=== PATIENT | female | born 1965 | race Caucasian/White ===

== ENCOUNTER → 2016-07-02 | Outpatient (CLI) | payer OTHER ==
[2016-07-02 18:15] LABS: BASO % 0.4 % (0.0-1.0); EOS # 0.1 K/mm3 (0.0-0.50); EOS % 1.8 % (0.0-3.0); LARGE UNSTAINED CELL # 0.1 K/mm3 (0.0-0.4); LARGE UNSTAINED CELL % 1.7 % (0.0-4.0); LYMPH # 2.7 K/mm3 (1.5-4.5); LYMPH % 37.3 % (24.0-44.0); MEAN CORPUSCULAR HEMOGLOBIN 28.9 pg (27.0-33.0); MEAN CORPUSCULAR HGB CONC 33.2 g/dl (32.0-36.5); MEAN CORPUSCULAR VOLUME 87.1 fl (80.0-96.0); MONO # 0.4 K/mm3 (0.0-0.8); MONO % 5.9 % (0.0-5.0); NEUTROPHILS # 3.6 K/mm3 (1.8-7.7); NEUTROPHILS % 52.9 % (36.0-66.0); PLATELET COUNT, AUTOMATED 290 k/mm3 (150-450); RED CELL DISTRIBUTION WIDTH 12.8 % (11.5-14.5); WHITE BLOOD COUNT 6.8 K/mm3 (4.0-10.0)
[2016-07-02 18:18] LABS: ALBUMIN 3.9 GM/DL (3.2-5.2); ALBUMIN/GLOBULIN RATIO 1.05 (1.00-1.93); ALKALINE PHOSPHATASE 66 U/L (45-117); ALT/SGPT 31 U/L (12-78); ANION GAP 7 MEQ/L (8-16); AST/SGOT 19 U/L (15-37); BLOOD UREA NITROGEN 13 MG/DL (7-18); CALCIUM LEVEL 9.4 MG/DL (8.5-10.1); CARBON DIOXIDE LEVEL 29 MEQ/L (21-32); CHLORIDE LEVEL 105 MEQ/L (98-107); CHOLESTEROL LEVEL 221 MG/DL (<200); CREATININE FOR GFR 0.69 MG/DL (0.55-1.02); FREE T4 1.14 NG/DL (0.76-1.46); GLOMERULAR FILTRATION RATE > 60.0 (>51); GLUCOSE, FASTING 89 MG/DL (70-105); POTASSIUM SERUM 4.7 MEQ/L (3.5-5.1); SODIUM LEVEL 141 MEQ/L (136-145); TOTAL PROTEIN 7.6 GM/DL (6.4-8.2); TRIGLYCERIDES LEVEL 102 MG/DL (<150)
== END ==
LOC: M LRY 10:50
PROVIDERS: ATTEND Physician Assistant Medical
DX: Z00.00 Encounter for general adult medical examination without abnormal findings (principal)

== ENCOUNTER → 2018-01-09 | Outpatient (CLI) | payer OTHER ==
[2018-01-09 16:44] LABS: BASO % 0.3 % (0.0-1.0); EOS # 0.1 10^3/uL (0.0-0.50); EOS % 1.7 % (0.0-3.0); HEMATOCRIT 42.6 % (36.0-47.0); HEMOGLOBIN 13.4 g/dl (12.0-15.5); IMMATURE GRANULOCYTE % 0.4 % (0-3.0); LYMPH # 2.8 10^3/uL (1.5-4.5); LYMPH % 40.7 % (24.0-44.0); MEAN CORPUSCULAR HEMOGLOBIN 27.5 pg (27.0-33.0); MEAN CORPUSCULAR HGB CONC 31.5 g/dl (32.0-36.5); MEAN CORPUSCULAR VOLUME 87.5 fl (80.0-96.0); MONO # 0.6 10^3/uL (0.0-0.8); MONO % 8.9 % (0.0-5.0); NEUTROPHILS # 3.3 10^3/uL (1.8-7.7); PLATELET COUNT, AUTOMATED 268 10^3/uL (150-450); RED BLOOD COUNT 4.87 10^6/uL (4.00-5.40); RED CELL DISTRIBUTION WIDTH 13.1 % (11.5-14.5); WHITE BLOOD COUNT 6.9 10^3/uL (4.0-10.0)
[2018-01-09 16:48] LABS: ANION GAP 5 MEQ/L (8-16); BLOOD UREA NITROGEN 16 MG/DL (7-18); CALCIUM LEVEL 8.7 MG/DL (8.5-10.1); CARBON DIOXIDE LEVEL 29 MEQ/L (21-32); CHLORIDE LEVEL 109 MEQ/L (98-107); CHOLESTEROL LEVEL 183 MG/DL (<200); CHOLESTEROL RISK RATIO 3.978 (<5); CREATININE FOR GFR 0.72 MG/DL (0.55-1.30); FREE T4 1.12 NG/DL (0.76-1.46); GLOMERULAR FILTRATION RATE > 60.0 (>51); GLUCOSE, FASTING 89 MG/DL (70-100); HDL CHOLESTEROL 46 MG/DL (>40); LDL CHOLESTEROL 121 MG/DL (<100); NON-HDL-C 137 MG/DL; POTASSIUM SERUM 4.5 MEQ/L (3.5-5.1); SODIUM LEVEL 143 MEQ/L (136-145); TRIGLYCERIDES LEVEL 80 MG/DL (<150)
== END ==
LOC: M LRY 12:06
DX: R19.7 Diarrhea, unspecified (principal)
CPT/HCPCS: 84443

== ENCOUNTER → 2018-01-13 | Outpatient (REF) | payer OTHER | LOC: M LAB REF 15:54 | DX: R19.7 Diarrhea, unspecified (principal); E78.5 Hyperlipidemia, unspecified | CPT/HCPCS: 87507 ==

== ENCOUNTER 2019-11-09 03:49 | Emergency (ER) | payer OTHER ==
[~2019-11-09] VITALS: Ht 170.2 cm; Wt 95.5 kg
[2019-11-09] MEDS ORDERED: CIPR500T3 PO (04:01)
[2019-11-09] MEDS ORDERED: CVS1CAP2 PO (04:03)
[2019-11-09 04:36] LABS: BASO % 0.3 % (0.0-1.0); EOS # 0.2 10^3/uL (0.0-0.5); EOS % 1.5 % (0.0-3.0); HEMATOCRIT 44.4 % (36.0-47.0); HEMOGLOBIN 14.4 g/dl (12.0-15.5); LYMPH # 3.9 10^3/uL (1.5-5.0); LYMPH % 35.7 % (24.0-44.0); MEAN CORPUSCULAR HEMOGLOBIN 27.7 pg (27.0-33.0); MEAN CORPUSCULAR HGB CONC 32.4 g/dl (32.0-36.5); MEAN CORPUSCULAR VOLUME 85.4 fl (80.0-96.0); MONO % 9.1 % (0.0-5.0); NEUTROPHILS # 5.8 10^3/uL (1.5-8.5); NEUTROPHILS % 53.1 % (36.0-66.0); PLATELET COUNT, AUTOMATED 301 10^3/uL (150-450); WHITE BLOOD COUNT 10.9 10^3/uL (4.0-10.0)
[2019-11-09] MEDS ORDERED: ONDANSETRON 4MG/2ML VIAL IV ONE (04:45)
[2019-11-09] MEDS ORDERED: MORPHINE 10 MG/ML 1ML VIAL (J2270) IV ONE (04:45)
[2019-11-09] MEDS ORDERED: LR 1,000 ML IV ONE (04:45)
[2019-11-09 04:53] LABS: INR 0.88; PROTHROMBIN TIME 12.1 SECONDS (12.5-14.3)
[2019-11-09] MEDS ORDERED: NS 1,000 ML IV ONE (05:00)
[2019-11-09 05:21] LABS: ALBUMIN 3.9 GM/DL (3.2-5.2); ALT/SGPT 26 U/L (12-78); BILIRUBIN,DIRECT 0.2 MG/DL (0.0-0.2); BILIRUBIN,TOTAL 0.7 MG/DL (0.2-1.0); BLOOD UREA NITROGEN 16 MG/DL (7-18); CALCIUM LEVEL 9.2 MG/DL (8.5-10.1); CARBON DIOXIDE LEVEL 27 MEQ/L (21-32); CHLORIDE LEVEL 108 MEQ/L (98-107); CK-MB VALUE MASS 1.2 NG/ML (<3.6); CPK CREATINE PHOSPHOKINASE 99 U/L (26-192); CREATININE FOR GFR 1.06 MG/DL (0.55-1.30); GLOMERULAR FILTRATION RATE 57.3 (>51); GLUCOSE, FASTING 132 MG/DL (70-100); LIPASE 75 U/L (73-393); MB/CK RELATIVE INDEX 1.21 (< OR =4); POTASSIUM SERUM 4.4 MEQ/L (3.5-5.1); SODIUM LEVEL 141 MEQ/L (136-145); TOTAL PROTEIN 7.7 GM/DL (6.4-8.2); TROPONIN I < 0.02 NG/ML (< 0.10)
[2019-11-09] MEDS ORDERED: ISOVUE-370 76% 100ML VIAL As Ordered ONE (05:53)
--- NOTE | 2019-11-09 07:21 | REPVR ---
PROCEDURE INFORMATION: Exam: CT Abdomen And Pelvis With Contrast Exam date and time: 11/09/2019 5:48 AM Age: 54 years old Clinical indication: Abdominal pain; Flank; Right; Additional info: Rule out abdominal infection TECHNIQUE: Imaging protocol: Computed tomography of the abdomen and pelvis with intravenous contrast. Radiation optimization: All CT scans at this facility use at least one of these dose optimization techniques: automated exposure control; mA and/or kV adjustment per patient size (includes targeted exams where dose is matched to clinical indication); or iterative reconstruction. Contrast material: ISO; Contrast volume: 100 ml; Contrast route: INTRAVENOUS (IV); COMPARISON: CT ABD PELVIS WITH CONTRAST 02/29/2016 9:54 PM FINDINGS: Lungs: Bibasilar atelectasis and/or scar. No consolidation. Mediastinal space: Small hiatal hernia. Liver: Diffuse fatty infiltration of the liver. Peripheral calcification right lobe. Gallbladder and bile ducts: No calcified gallstones. No ductal dilatation. Pancreas: Unremarkable. No ductal dilatation. Spleen: Unremarkable. No splenomegaly. Adrenals: Unremarkable. No mass. Kidneys and ureters: There is mild right hydronephrosis and perinephric stranding. There is right hydroureter and periureteral stranding with dilatation of the right ureter down to the level of a 4 mm calculus at the right UVJ. There is a punctate few mm calculus within the lower pole of the right kidney. The kidneys are otherwise unremarkable. Stomach and bowel: No bowel obstruction. Colonic diverticulosis. No acute diverticulitis. Minimal stranding adjacent to the proximal sigmoid colon in the region of previously noted diverticulitis, likely postinflammatory scar. Appendix: No evidence of appendicitis. Intraperitoneal space: No free fluid. No free air. Vasculature: Atherosclerosis. No abdominal aortic aneurysm. Lymph nodes: No significant adenopathy. Urinary bladder: Partially distended urinary bladder. Reproductive: Status post hysterectomy. Bones/joints: Degenerative change lower thoracic and lumbar spine. Soft tissues: Small fat containing umbilical hernia. Fat containing left femoral hernia. IMPRESSION: 1. Right obstructive uropathy with mild right hydronephrosis and hydroureter secondary to a 4 mm calculus at the right UVJ. 2. Minimal right nephrolithiasis. 3. Hepatic steatosis. 4. Colonic diverticulosis. Minimal stranding adjacent to the proximal sigmoid colon in the region of previously noted diverticulitis, likely postinflammatory scar. 5. Additional non-emergent findings, as discussed above. Electronically signed by: Mitch Haney On 11/09/2019 07:21:23 AM
[2019-11-09] MEDS ORDERED: KETOROLAC 30 MG/ML 1ML VIAL IV ONE (07:30)
[2019-11-09] MEDS ORDERED: TAMSULOSIN 0.4 MG CAP PO ONE (08:15)
[2019-11-09] MEDS ORDERED: NORC1TAB7 PO (09:03)
[2019-11-09] MEDS ORDERED: FLOM0.4C39 PO (09:03)
[2019-11-09] MEDS ORDERED: ONDA4TAB6 PO (09:03)
--- NOTE | 2019-11-09 09:21 | ECGEPIP ---
[facility] - ED Test Date: 2019-11-09 Pat Name: LIVIA FORTE Department: Room: - Gender: Female Title Vehicle Service Attendant: jarek : 1965 Requested By: LAURENCE HAYES Order Number: [id number] Reading MD: Dariela Vitale Measurements Intervals [place] Rate: 65 P: 0 VT: 132 QRS: 16 QRSD: 83 T: 19 QT: 393 QTc: 411 Interpretive Statements SINUS RHYTHM baseline artifact may affect interpretation NO PRIOR Electronically Signed on 11-09-2019 9:21:05 EDT by Dariela Vitale
[2019-11-09 09:24] VITALS: BP 134/85
== END 2019-11-09 09:27 | disposition home or self-care (01) ==
LOC: M ED 03:49
DX: N20.1 Calculus of ureter (principal); K76.0 Fatty (change of) liver, not elsewhere classified; K57.30 Diverticulosis of large intestine without perforation or abscess without bleeding
CPT/HCPCS: 74177; 80048; 80076; 81001; 82550; 82553; 83605; 83690; 84484; 85025; 85610; 93005; 93041; 96361; 96374; 96375; 99285; J2270; J2405; Q9967

== ENCOUNTER → 2021-06-29 | Outpatient (CLI) | payer OTHER ==
[~2021-06-29] MED LIST: CIPR500T3 PO; CVS1CAP2 PO; FLOM0.4C39 PO; NORC1TAB7 PO; ONDA4TAB6 PO
== END ==
LOC: M WHC 15:26
PROVIDERS: ATTEND Nurse Practitioner Family
DX: Z12.31 Encounter for screening mammogram for malignant neoplasm of breast (principal); R92.8 Other abnormal and inconclusive findings on diagnostic imaging of breast

== ENCOUNTER → 2021-07-03 | Outpatient (CLI) | payer OTHER | LOC: M WHC 13:34 | PROVIDERS: ATTEND Nurse Practitioner Family | DX: R92.2 Inconclusive mammogram (principal); R92.8 Other abnormal and inconclusive findings on diagnostic imaging of breast; N60.11 Diffuse cystic mastopathy of right breast | CPT/HCPCS: 76642; 77065; G0279 ==

== ENCOUNTER → 2023-03-12 | Outpatient (CLI) | payer OTHER ==
[2023-03-12 12:18] LABS: BASO % 0.1 % (0.0-1.0); EOS # 0.2 10^3/uL (0.0-0.5); EOS % 2.4 % (0.0-3.0); HEMOGLOBIN 14.4 g/dl (12.0-15.5); LYMPH # 2.6 10^3/uL (1.5-5.0); MEAN CORPUSCULAR HEMOGLOBIN 28.2 pg (27.0-33.0); MEAN CORPUSCULAR HGB CONC 32.7 g/dl (32.0-36.5); MEAN CORPUSCULAR VOLUME 86.1 fl (80.0-96.0); MONO # 0.6 10^3/uL (0.0-0.8); MONO % 7.5 % (2.0-8.0); NEUTROPHILS # 4.1 10^3/uL (1.5-8.5); NEUTROPHILS % 54.5 % (36.0-66.0); PLATELET COUNT, AUTOMATED 281 10^3/uL (150-450); RED BLOOD COUNT 5.11 10^6/uL (4.00-5.40); WHITE BLOOD COUNT 7.6 10^3/uL (4.0-10.0)
[2023-03-12 12:36] LABS: HEMOGLOBIN A1c 5.6 % (4.0-6.0)
[2023-03-12 12:38] LABS: ALBUMIN 3.7 G/DL (3.2-5.2); ALKALINE PHOSPHATASE 72 U/L (46-116); ALT/SGPT 19 U/L (7.0-40); AST/SGOT 13 U/L (<34); BILIRUBIN,TOTAL 1.2 MG/DL (0.3-1.2); BLOOD UREA NITROGEN 14 MG/DL (9-23); CALCIUM LEVEL 9.2 MG/DL (8.5-10.1); CARBON DIOXIDE LEVEL 29 MMOL/L (20-31); CHLORIDE LEVEL 107 MMOL/L (98-107); CHOLESTEROL LEVEL 209 MG/DL (<200); CHOLESTEROL RISK RATIO 3.75 (<5); CREATININE FOR GFR 0.77 MG/DL (0.55-1.30); GLOMERULAR FILTRATION RATE > 60.0 (>51); GLUCOSE, FASTING 98 MG/DL (60-100); HDL CHOLESTEROL 55.7 MG/DL (>40); LDL CHOLESTEROL 138.9 MG/DL (<100); NON-HDL-C 153.3 MG/DL; POTASSIUM SERUM 4.2 MMOL/L (3.5-5.1); SODIUM LEVEL 141 MMOL/L (136-145); TRIGLYCERIDES LEVEL 72 MG/DL (<150)
[2023-03-12 12:40] LABS: THYROID STIMULATING HORMONE 1.566 uIU/ML (0.55-4.78)
== END ==
LOC: M LAB 11:34
PROVIDERS: ATTEND Registered Nurse
DX: E66.9 Obesity, unspecified (principal)

== ENCOUNTER → 2023-06-13 | Outpatient (CLI) | payer OTHER | LOC: M WUC 10:10 | PROVIDERS: ATTEND Student in an Organized Health Care Education/Training Program | DX: M25.572 Pain in left ankle and joints of left foot (principal); S82.425A Nondisplaced transverse fracture of shaft of left fibula, initial encounter for closed fracture; X58.XXXA Exposure to other specified factors, initial encounter; Y92.9 Unspecified place or not applicable; Y99.9 Unspecified external cause status; Y93.9 Activity, unspecified; M79.89 Other specified soft tissue disorders; M77.32 Calcaneal spur, left foot; M76.9 Unspecified enthesopathy, lower limb, excluding foot ==